=== PATIENT | female | born 1995 | race Caucasian/White ===

== ENCOUNTER → 2021-04-01 | Outpatient (CLI) | payer BC, OTHER ==
--- NOTE | 2021-04-01 15:43 | Diagnostic Imaging Report ---
INDICATION: Left axillary swelling. FINDINGS: Sonographic interrogation of the area of lump in the left axilla was performed. No sonographic abnormality is identified. No solid or cystic mass is detected. IMPRESSION: No sonographic abnormality is detected. ACR BI-RADS Category 1: Negative. Dictated by: Dictated on workstation # [id number]
== END ==
LOC: RAD 14:15
PROVIDERS: ATTEND Nurse Practitioner
DX: M79.89 Other specified soft tissue disorders (principal)
CPT/HCPCS: 76642